=== PATIENT | male | born 1985 | race African-American/Black ===

== ENCOUNTER 2022-06-11 18:18 | Emergency (ER) | payer SELFPAY ==
[~2022-06-11] VITALS: Ht 180.3 cm; Wt 80.0 kg
--- NOTE | 2022-06-11 19:20 | NUR ---
pt in [facility] custody, pending medical clearance. pt reports pain "all over". no obvious injuries.
[2022-06-11 20:40] VITALS: BP 117/64
== END 2022-06-11 20:43 ==
LOC: ER 18:19
DX: R41.82 Altered mental status, unspecified (principal); R10.2 Pelvic and perineal pain; V98.8XXA Other specified transport accidents, initial encounter; Y93.89 Activity, other specified; Y92.89 Other specified places as the place of occurrence of the external cause; Y99.8 Other external cause status
CPT/HCPCS: 70450; 72125; 99284